=== PATIENT | female | born 1960 | race Caucasian/White ===

== ENCOUNTER → 2017-11-29 | Outpatient (CLI) | payer OTHER | END | disposition home or self-care (01) | LOC: CVU 09:41 | PROVIDERS: ATTEND Physician Assistant | DX: I35.0 Nonrheumatic aortic (valve) stenosis (principal); I35.8 Other nonrheumatic aortic valve disorders | CPT/HCPCS: 93306 ==

== ENCOUNTER → 2017-12-26 | Outpatient (CLI) | payer OTHER ==
[~2017-12-26] MED LIST: ALBU18HF INH; CARV12.52 PO; CIPR500T87 PO; FLUT1BLS INH; LISI1TAB7 PO; MONT10TA9 PO; OMNIPAQUE 350 MG/ML, 150 ML BOTTLE ONE
[2017-12-26 16:37] LABS: CREATININE 1.26 mg/dL (0.55-1.02)
== END ==
LOC: RAD 15:52
PROVIDERS: ATTEND Nurse Practitioner Family
DX: N20.0 Calculus of kidney (principal); N32.9 Bladder disorder, unspecified; R91.8 Other nonspecific abnormal finding of lung field
CPT/HCPCS: 36415; 74178; 82565; Q9967

== ENCOUNTER 2018-01-02 10:43 | Day surgery (SDC) | payer OTHER ==
[~2018-01-02] VITALS: Ht 157.5 cm; Wt 82.5 kg
[2018-01-02] MEDS ORDERED: LACTATED RINGERS 1,000 ML IV SCH (11:02)
[2018-01-02] MEDS ORDERED: LISI1TAB7 PO (11:08)
[2018-01-02] MEDS ORDERED: ALBU18HF INH (11:08)
[2018-01-02] MEDS ORDERED: MONT10TA9 PO (11:08)
[2018-01-02] MEDS ORDERED: CARV12.52 PO (11:08)
[2018-01-02] MEDS ORDERED: FLUT1BLS INH (11:08)
[2018-01-02] MEDS ORDERED: PROPOFOL 10 MG/ML, 20ML ONE ×2 (11:24→14:22)
[2018-01-02] MEDS ORDERED: FENTANYL PF 250 MCG/5ML ONE (11:24)
[2018-01-02] MEDS ORDERED: MIDAZOLAM 1 MG/ML, 2ML ONE (11:24)
[2018-01-02] MEDS ORDERED: PHENYLEPHRINE 10 MG/ML ONE ×2 (11:24→14:23)
[2018-01-02 11:38] VITALS: BP 89/60
[2018-01-02] MEDS ORDERED: CIPR500T87 PO (11:38)
[2018-01-02] MEDS ORDERED: GENTAMICIN 80 MG/2 ML ONE (13:36)
[2018-01-02] MEDS ORDERED: GLYCOPYRROLATE 0.2MG/1ML, 5ML ONE (13:58)
[2018-01-02] MEDS ORDERED: ROCURONIUM 10MG/ML,5ML ONE (14:22)
[2018-01-02] MEDS ORDERED: CEFAZOLIN 1,000 MG ONE ×2 (14:23)
[2018-01-02] MEDS ORDERED: EPINEPHRINE 1 MG/ML, 1ML ONE (14:23)
[2018-01-02] MEDS ORDERED: NEOSTIGMINE 1 MG/ML, 10ML ONE (14:39)
[2018-01-02] MEDS ORDERED: MEPERIDINE/PF 25MG/0.5ML IVPush PRN (15:00)
[2018-01-02] MEDS ORDERED: PROMETHAZINE 12.5 MG SUPP PR PRN (15:00)
[2018-01-02] MEDS ORDERED: ACETAMINOPHEN 325 MG TABLET PO PRN (15:00)
[2018-01-02] MEDS ORDERED: MORPHINE SULFATE 4 MG/ML, 1ML IVPush PRN (15:00)
[2018-01-02] MEDS ORDERED: OXYcodone 5 MG/5 ML ORAL.SOL UDC ONE (15:04)
[2018-01-02] MEDS ORDERED: FENTANYL PF 100 MCG/2ML ONE (15:04)
[2018-01-02] MEDS: FENTANYL PF 100 MCG/2ML IV PRN ×2 (15:06→15:19)
[2018-01-02] MEDS ORDERED: OXYcodone 5 MG/5 ML ORAL.SOL UDC PO PRN (15:30)
== END 2018-01-02 18:00 | disposition home or self-care (01) ==
LOC: OUT 10:43
PROVIDERS: ATTEND Urology
DX: C67.9 Malignant neoplasm of bladder, unspecified (principal)
CPT/HCPCS: 36415; 80047; 88305; J0171; J0690; J2250; J2704; J2710; J3010; J3490; J1580; J2370; J7120

== ENCOUNTER 2018-01-05 12:08 | Emergency (ER) | payer OTHER ==
[~2018-01-05] VITALS: Ht 157.5 cm; Wt 80.0 kg
[~2018-01-05 12:08] MED LIST changes: -OMNIPAQUE 350 MG/ML, 150 ML BOTTLE ONE
[2018-01-05 13:35] VITALS: BP 119/56
== END 2018-01-05 13:58 | disposition home or self-care (01) ==
LOC: ED 13:40
DX: R10.2 Pelvic and perineal pain (principal)
CPT/HCPCS: 72192; 99284

== ENCOUNTER 2018-02-06 05:34 | Day surgery (SDC) | payer OTHER ==
[~2018-02-06] VITALS: Ht 157.5 cm; Wt 81.0 kg
[2018-02-06] MEDS ORDERED: LACTATED RINGERS 1,000 ML IV SCH (06:01)
[2018-02-06 06:07] VITALS: BP 127/68
[2018-02-06 06:41] LABS: CULTURE INDICATED? YES; MICROSCOPIC INDICATED
[2018-02-06 06:49] LABS: BASOPHILS # (AUTO) 0.04 x10^3/uL (0-0.1); BASOPHILS % (AUTO) 1 % (0-1); EOSINOPHILS # (AUTO) 0.08 x10^3/uL (0-0.4); EOSINOPHILS % (AUTO) 2 % (1-7); LYMPHOCYTES # (AUTO) 1.42 x10^3/uL (1-3.4); LYMPHOCYTES % (AUTO) 29 % (22-44); MD NO; MEAN CORPUSCULAR HEMOGLOBIN 33.4 pg (27.0-34.8); MEAN CORPUSCULAR HGB CONC 33.5 g/dL (32.4-35.8); MEAN CORPUSCULAR VOLUME 99.8 fL (80-100); MEAN PLATELET VOLUME 8.6 fL (7.4-10.4); MONOCYTES # (AUTO) 0.55 x10^3/uL (0.2-0.8); MONOCYTES % (AUTO) 11 % (2-9); NEUTROPHILS # (AUTO) 2.81 x10^3/uL (1.8-6.8); NEUTROPHILS % (AUTO) 57 % (42-75); PLATELET COUNT 180 x10^3/uL (130-400); RED BLOOD COUNT 4.54 x10^6/uL (3.82-5.3); RED CELL DISTRIBUTION WIDTH 14.3 % (9.6-15.2)
[2018-02-06] MEDS ORDERED: FENTANYL PF 250 MCG/5ML ONE (07:00)
[2018-02-06] MEDS ORDERED: MIDAZOLAM 1 MG/ML, 2ML ONE (07:00)
[2018-02-06] MEDS ORDERED: PROPOFOL 10 MG/ML, 20ML ONE (07:01)
[2018-02-06] MEDS ORDERED: LIDOCAINE-MPF 2% ,5ML ONE (07:01)
[2018-02-06 07:02] LABS: ALANINE AMINOTRANSFERASE 65 U/L (12-78); ALBUMIN 4.2 g/dL (3.4-5.0); ANION GAP 8 mmol/L (5-15); CALCIUM 9.6 mg/dL (8.5-10.1); CHLORIDE 102 mmol/L (98-107); CREATININE 1.03 mg/dL (0.55-1.02)
[2018-02-06 07:04] LABS: ALKALINE PHOSPHATASE 66 U/L (45-117)
[2018-02-06] MEDS ORDERED: CEFAZOLIN 1,000 MG ONE ×2 (07:05)
[2018-02-06] MEDS ORDERED: DEXAMETHASONE 4 MG/ML, 1ML ONE ×2 (07:05)
[2018-02-06] MEDS ORDERED: PHENYLEPHRINE 10 MG/ML ONE (07:05)
[2018-02-06] MEDS ORDERED: ONDANSETRON ODT 8 MG ONE ×2 (07:08→07:09)
[2018-02-06] MEDS ORDERED: hydrALAzine 20 MG/ML, 1ML IV PRN (08:30)
[2018-02-06] MEDS ORDERED: FENTANYL PF 100 MCG/2ML IV PRN (08:30)
[2018-02-06] MEDS ORDERED: MEPERIDINE/PF 25MG/0.5ML IVPush PRN (08:30)
[2018-02-06] MEDS ORDERED: ACETAMINOPHEN 325 MG TABLET PO PRN (08:30)
[2018-02-06] MEDS ORDERED: ALBUTEROL SULFATE 2.5 MG/3 ML NPPB PRN (08:30)
[2018-02-06] MEDS ORDERED: HYDROmorphone 2 MG/ML, 1ML IV PRN (08:30)
[2018-02-06] MEDS ORDERED: OXYcodone 5 MG/5 ML ORAL.SOL UDC PO PRN (08:30)
[2018-02-06] MEDS ORDERED: LABETALOL 5MG/ML, 20ML IV PRN (08:30)
[2018-02-06] MEDS ORDERED: PROMETHAZINE 25 MG/ML, 1ML IV PRN (08:30)
[2018-02-06] MEDS ORDERED: HALOPERIDOL 5 MG/ML IV PRN (08:30)
== END 2018-02-06 10:10 ==
LOC: OUT 05:34
PROVIDERS: ATTEND Urology
DX: N30.00 Acute cystitis without hematuria (principal); N30.20 Other chronic cystitis without hematuria; J45.909 Unspecified asthma, uncomplicated; I10 Essential (primary) hypertension; Z72.89 Other problems related to lifestyle
CPT/HCPCS: 36415; 52204; 80053; 81001; 85025; 87086; 88305; 88307; J0690; J1100; J2250; J2370; J2704; J3010; J3490; J7120; Q0162

== ENCOUNTER → 2018-05-29 | Outpatient (CLI) | payer OTHER | END | disposition home or self-care (01) | LOC: CFH 12:40 | PROVIDERS: ATTEND Internal Medicine Cardiovascular Disease | DX: I11.9 Hypertensive heart disease without heart failure (principal); I35.0 Nonrheumatic aortic (valve) stenosis; E78.5 Hyperlipidemia, unspecified; Z85.51 Personal history of malignant neoplasm of bladder | CPT/HCPCS: 93306 ==

== ENCOUNTER 2018-06-11 09:38 | Day surgery (SDC) | payer OTHER ==
[~2018-06-11] VITALS: Ht 160 cm; Wt 81.8 kg
[2018-06-11] MEDS ORDERED: SODIUM CHLORIDE 0.9% 1,000 ML IV ONE (09:56)
[2018-06-11] MEDS ORDERED: HYDR12.58 PO (10:07)
[2018-06-11] MEDS ORDERED: PRAV20TA2 PO (10:07)
[2018-06-11] MEDS ORDERED: LISI-170 PO (10:07)
[2018-06-11] MEDS ORDERED: ALBU8.5H8 INH (10:07)
[2018-06-11 10:08] VITALS: BP 114/78
[2018-06-11 10:36] LABS: ALANINE AMINOTRANSFERASE 76 U/L (12-78); ALBUMIN 3.8 g/dL (3.4-5.0); ANION GAP 8 mmol/L (5-15); CALCIUM 9.6 mg/dL (8.5-10.1); CHLORIDE 107 mmol/L (98-107); CREATININE 0.85 mg/dL (0.55-1.02)
[2018-06-11 10:38] LABS: ALKALINE PHOSPHATASE 63 U/L (45-117); BILIRUBIN,TOTAL 0.7 mg/dL (0.2-1.0); TOTAL PROTEIN 7.5 g/dL (6.4-8.2)
[2018-06-11 10:49] LABS: BASOPHILS # (AUTO) 0.02 x10^3/uL (0-0.1); BASOPHILS % (AUTO) 1 % (0-1); EOSINOPHILS # (AUTO) 0.06 x10^3/uL (0-0.4); EOSINOPHILS % (AUTO) 2 % (1-7); LYMPHOCYTES # (AUTO) 1.12 x10^3/uL (1-3.4); LYMPHOCYTES % (AUTO) 29 % (22-44); MD NO; MEAN CORPUSCULAR HEMOGLOBIN 34.4 pg (27.0-34.8); MEAN CORPUSCULAR HGB CONC 34.3 g/dL (32.4-35.8); MEAN CORPUSCULAR VOLUME 100.1 fL (80-100); MEAN PLATELET VOLUME 8.7 fL (7.4-10.4); MONOCYTES # (AUTO) 0.36 x10^3/uL (0.2-0.8); MONOCYTES % (AUTO) 9 % (2-9); NEUTROPHILS # (AUTO) 2.32 x10^3/uL (1.8-6.8); NEUTROPHILS % (AUTO) 60 % (42-75); PLATELET COUNT 152 x10^3/uL (130-400); RED BLOOD COUNT 4.42 x10^6/uL (3.82-5.3)
[2018-06-11] MEDS ORDERED: BIVALIRUDIN 250 MG ONE (11:32)
[2018-06-11] MEDS ORDERED: MIDAZOLAM 1 MG/ML, 5ML ONE (11:32)
[2018-06-11] MEDS ORDERED: HEPARIN 1,000 UNITS/ML, 10ML ONE (11:32)
[2018-06-11] MEDS ORDERED: FENTANYL PF 100 MCG/2ML ONE (11:32)
[2018-06-11] MEDS ORDERED: NITROGLYCERIN 5 MG/ML, 10ML ONE (11:32)
[2018-06-11] MEDS ORDERED: VERAPAMIL 2.5 MG/ML, 2ML ONE (11:32)
[2018-06-11] MEDS ORDERED: LIDOCAINE-MPF 1%, 5ML ONE (11:32)
[2018-06-11] MEDS ORDERED: TICAGRELOR 90 MG TABLET ONE (11:32)
[2018-06-11] MEDS ORDERED: SODIUM CHLORIDE 0.9% 1,000 ML IV SCH (12:49)
== END 2018-06-11 14:51 | disposition home or self-care (01) ==
LOC: CACL 09:38
PROVIDERS: ATTEND Internal Medicine Cardiovascular Disease
DX: R07.9 Chest pain, unspecified (principal); I10 Essential (primary) hypertension; E78.5 Hyperlipidemia, unspecified; E66.9 Obesity, unspecified; I35.0 Nonrheumatic aortic (valve) stenosis; Z98.890 Other specified postprocedural states
CPT/HCPCS: 36415; 80053; 85025; 93454; 93567; 99156; C1769; C1894; J1644; J2250; J3010; Q9967; J0583

== ENCOUNTER → 2018-06-17 | Outpatient (CLI) | payer OTHER ==
[~2018-06-17] MED LIST changes: +ALBU8.5H8 INH; +HYDR12.58 PO; +LISI-170 PO; +PRAV20TA2 PO
== END | disposition home or self-care (01) ==
LOC: LAB 11:13
PROVIDERS: ATTEND Nurse Practitioner
DX: R91.8 Other nonspecific abnormal finding of lung field (principal); G47.33 Obstructive sleep apnea (adult) (pediatric)
CPT/HCPCS: 71250

== ENCOUNTER 2018-07-02 04:23 | Inpatient (IN) | payer OTHER ==
[2018-07-01 12:48] LABS: MICROSCOPIC NOT IND
[2018-07-01 13:50] LABS: ALBUMIN 3.8 g/dL (3.4-5.0); ANION GAP 9 mmol/L (5-15); CALCIUM 9.4 mg/dL (8.5-10.1); CHLORIDE 105 mmol/L (98-107)
[2018-07-01 13:54] LABS: ALANINE AMINOTRANSFERASE 69 U/L (12-78); ALKALINE PHOSPHATASE 66 U/L (45-117); BILIRUBIN,TOTAL 1.1 mg/dL (0.2-1.0); TOTAL PROTEIN 7.8 g/dL (6.4-8.2)
[2018-07-01 14:03] LABS: BASOPHILS # (AUTO) 0.03 x10^3/uL (0-0.1); BASOPHILS % (AUTO) 1 % (0-1); EOSINOPHILS # (AUTO) 0.09 x10^3/uL (0-0.4); EOSINOPHILS % (AUTO) 2 % (1-7); LYMPHOCYTES # (AUTO) 1.65 x10^3/uL (1-3.4); LYMPHOCYTES % (AUTO) 29 % (22-44); MD NO; MEAN CORPUSCULAR HEMOGLOBIN 35.5 pg (27.0-34.8); MEAN CORPUSCULAR HGB CONC 34.7 g/dL (32.4-35.8); MEAN CORPUSCULAR VOLUME 102.3 fL (80-100); MEAN PLATELET VOLUME 8.4 fL (7.4-10.4); MONOCYTES # (AUTO) 0.56 x10^3/uL (0.2-0.8); MONOCYTES % (AUTO) 10 % (2-9); NEUTROPHILS # (AUTO) 3.43 x10^3/uL (1.8-6.8); NEUTROPHILS % (AUTO) 60 % (42-75); PLATELET COUNT 156 x10^3/uL (130-400); RED BLOOD COUNT 4.52 x10^6/uL (3.82-5.3); RED CELL DISTRIBUTION WIDTH 13.9 % (9.6-15.2)
[2018-07-01 14:13] LABS: INTERNATIONAL NORMALIZED RATIO 1.18 (0.93-1.1); PROTHROMBIN TIME 12.2 Seconds (9.6-11.5)
[2018-07-01 14:30] LABS: HEMOGLOBIN A1C 5.4 % (4.2-6.3)
[~2018-07-02] VITALS: Ht 157.5 cm; Wt 86.2 kg
[2018-07-02 04:35] VITALS: BP 112/78
[2018-07-02 04:36] VITALS: BP 121/82
[2018-07-02] MEDS ORDERED: CHLORHEXIDINE 15 ML UDC MM SCH (05:00)
[2018-07-02] MEDS ORDERED: INSULIN LISPRO 100 UNITS/ML, PEN SQ-INSULIN SCH (05:00)
[2018-07-02] MEDS ORDERED: ALBUMIN HUMAN 5% 500 ML IV PRN (05:00)
[2018-07-02] MEDS ORDERED: THROMBIN 5,000 UNIT VIAL TP ONE ×2 (06:08→08:34)
[2018-07-02] MEDS ORDERED: MIDAZOLAM 10MG/2 ML ONE (06:43)
[2018-07-02] MEDS ORDERED: FENTANYL PF 250 MCG/5ML ONE ×4 (06:43→06:44)
[2018-07-02] MEDS ORDERED: PROPOFOL 10 MG/ML, 20ML ONE (06:45)
[2018-07-02] MEDS ORDERED: AMINOCAPROIC ACID 250 MG/ML, 20ML ONE (06:45)
[2018-07-02] MEDS ORDERED: CALCIUM CHLORIDE 10%, 10ML SYR ONE (06:46)
[2018-07-02] MEDS ORDERED: EPINEPHRINE 1 MG/ML, 1ML ONE (06:48)
[2018-07-02] MEDS ORDERED: ROCURONIUM 10 MG/ML,10ML ONE (07:27)
[2018-07-02] MEDS ORDERED: MANNITOL PMX 20% 500 ML IVPB PRN (07:30)
[2018-07-02] MEDS ORDERED: VANCOMYCIN 1,300 MG in SODIUM CHLORIDE 0.9% 250 ML IV PRN (07:30)
[2018-07-02] MEDS ORDERED: PHENYLEPHRINE 10 MG in SODIUM CHLORIDE 0.9% 249 ML IV PRN ×2 (07:30→10:58)
[2018-07-02] MEDS ORDERED: EPINEPHRINE 2 MG in SODIUM CHLORIDE 0.9% 248 ML IV SCH (07:30)
[2018-07-02] MEDS ORDERED: REGULAR INSULIN 62.5 UNITS in SODIUM CHLORIDE 0.9% 249.375 ML IV PRN ×2 (07:30→10:58)
[2018-07-02] MEDS ORDERED: CEFUROXIME 1.5 GM in SODIUM CHLORIDE 0.9% 50 ML IVPB PRN (07:30)
[2018-07-02] MEDS ORDERED: DEXMEDETOMIDINE 200 MCG in SODIUM CHLORIDE 0.9% 48 ML IV SCH (07:30)
[2018-07-02] MEDS ORDERED: POTASSIUM CHLORIDE 80 MEQ, SODIUM BICARBONATE 8.4% 10 MEQ, MAGNESIUM SULFATE 0.5 GM, LI... IV PRN (07:30)
[2018-07-02] MEDS ORDERED: MUPIROCIN OINT 2%, 22GM TP SCH (09:00)
[2018-07-02] MEDS ORDERED: SODIUM CHLORIDE FLUSH 10ML SYR IVF SCH (09:00)
[2018-07-02] MEDS ORDERED: NITROGLYCERIN/D5W PMX 250 ML ONE (10:19)
[2018-07-02] MEDS ORDERED: SODIUM CHLORIDE 0.9% 1,000 ML IV PRN (10:58)
[2018-07-02] MEDS ORDERED: DEXMEDETOMIDINE 200 MCG in SODIUM CHLORIDE 0.9% 48 ML IV PRN (10:58)
[2018-07-02] MEDS ORDERED: NITROGLYCERIN/D5W PMX 250 ML IV PRN (10:58)
[2018-07-02] MEDS ORDERED: VASOPRESSIN 50 UNIT in SODIUM CHLORIDE 0.9% 247.5 ML IV PRN (10:58)
[2018-07-02] MEDS ORDERED: DOBUTAMINE 250 MG in SODIUM CHLORIDE 0.9% 230 ML IV PRN (10:58)
[2018-07-02] MEDS ORDERED: GLUCAGON 1 MG IM PRN (11:00)
[2018-07-02] MEDS ORDERED: MIDAZOLAM 1 MG/ML, 5ML IVPush PRN (11:00)
[2018-07-02] MEDS ORDERED: SODIUM BICARB 8.4%, 50ML SYRINGE IV PRN (11:00)
[2018-07-02] MEDS ORDERED: INSULIN REGULAR 100 UNITS/ML, 3ML VIAL IVPush PRN (11:00)
[2018-07-02] MEDS ORDERED: BISACODYL 10 MG SUPP PR PRN (11:00)
[2018-07-02] MEDS ORDERED: DEXTROSE 50%, 50ML SYRINGE IVPush PRN (11:00)
[2018-07-02] MEDS ORDERED: BISACODYL 5 MG EC TABLET PO PRN (11:00)
[2018-07-02] MEDS ORDERED: PROCHLORPERAZINE 5 MG/ML, 2ML IVPush PRN (11:00)
[2018-07-02] MEDS ORDERED: morphine SULFATE 10 MG/ML, 1ML IVPush PRN (11:00)
[2018-07-02] MEDS ORDERED: DEXTROSE 4 GM TAB.CHEW PO PRN (11:00)
[2018-07-02] MEDS ORDERED: ACETAMINOPHEN 650 MG SUPP PR PRN (11:00)
[2018-07-02] MEDS ORDERED: HYDROcodone/APAP 5/325 TABLET PO PRN (11:00)
[2018-07-02] MEDS ORDERED: EPINEPHRINE 2 MG in SODIUM CHLORIDE 0.9% 248 ML IV PRN (11:00)
[2018-07-02] MEDS ORDERED: LIDOCAINE 2% 100MG/5ML SYRINGE ONE (11:20)
[2018-07-02] MEDS ORDERED: SODIUM BICARB 8.4%, 50ML SYRINGE ONE (11:20)
[2018-07-02] MEDS ORDERED: HEPARIN 1,000 UNITS/ML, 30ML ONE (11:21)
[2018-07-02] MEDS ORDERED: ALBUMIN HUMAN 25% 50 ML ONE (11:21)
[2018-07-02] MEDS: DOCUSATE 100 MG CAPSULE PO SCH ×2 (11:47→21:13)
[2018-07-02] MEDS: INSULIN LISPRO 100 UNITS/ML, PEN SQ-INSULIN SCH ×3 (11:48→20:00)
[2018-07-02] MEDS: MAGNESIUM SULFATE 1 GM in SODIUM CHLORIDE 0.9% 50 ML IVPB SCH (11:48)
[2018-07-02 11:50] LABS: GLUCOSE BY BLOOD GAS ANALYZER 126 mg/dL (70-110); HEMOGLOBIN BY BLOOD GAS ANALYZ 12.3 g/dL (14.0-18.0); POTASSIUM BY BLOOD GAS ANALYZR 4.2 mmol/L (3.6-5.5)
[2018-07-02] MEDS: KSCALE TO 4.5 IV SCH ×2 (12:04→17:35)
[2018-07-02] MEDS: LACTATED RINGERS 1,000 ML IV PRN ×5 (13:57→17:58)
[2018-07-02] MEDS: OXYcodone IR 5MG TABLET PO PRN ×2 (14:20→19:59)
[2018-07-02] MEDS ORDERED: ALBUTEROL SULFATE 2.5 MG/3 ML NPPB PRN (14:30)
[2018-07-02] MEDS: ONDANSETRON 2MG/ML, 2ML IVPush PRN (17:32)
[2018-07-02] MEDS: CEFUROXIME 1.5 GM in SODIUM CHLORIDE 0.9% 50 ML IVPB SCH (19:58)
[2018-07-02] MEDS: CHLORHEXIDINE 15 ML UDC PO SCH (21:13)
[2018-07-02] MEDS: MUPIROCIN OINT 2%, 22GM NAS SCH (21:14)
[2018-07-03] MEDS: KSCALE TO 4.5 IV SCH ×2 (00:21→06:30)
[2018-07-03] MEDS: OXYcodone IR 5MG TABLET PO PRN ×7 (01:26→23:46)
[2018-07-03] MEDS: INSULIN LISPRO 100 UNITS/ML, PEN SQ-INSULIN SCH ×7 (04:00→23:48)
[2018-07-03 05:07] LABS: ANION GAP 6 mmol/L (5-15); CALCIUM 7.5 mg/dL (8.5-10.1); CHLORIDE 110 mmol/L (98-107); CREATININE 0.64 mg/dL (0.55-1.02); INTERNATIONAL NORMALIZED RATIO 1.3 (0.93-1.1); MEAN CORPUSCULAR HEMOGLOBIN 35.4 pg (27.0-34.8); MEAN CORPUSCULAR HGB CONC 34.3 g/dL (32.4-35.8); MEAN CORPUSCULAR VOLUME 103.3 fL (80-100); PROTHROMBIN TIME 13.4 Seconds (9.6-11.5); RED CELL DISTRIBUTION WIDTH 14.3 % (9.6-15.2)
[2018-07-03 05:41] LABS: BASOPHILS # (AUTO) 0.04 x10^3/uL (0-0.1); BASOPHILS % (AUTO) 1 % (0-1); EOSINOPHILS # (AUTO) 0.09 x10^3/uL (0-0.4); EOSINOPHILS % (AUTO) 1 % (1-7); LYMPHOCYTES % (AUTO) 16 % (22-44); MD SCAN; MEAN PLATELET VOLUME 8.6 fL (7.4-10.4); MONOCYTES % (AUTO) 8 % (2-9); NEUTROPHILS # (AUTO) 6.51 x10^3/uL (1.8-6.8); NEUTROPHILS % (AUTO) 75 % (42-75); PLATELET COUNT 83 x10^3/uL (130-400)
[2018-07-03] MEDS ORDERED: MILRINONE 1 MG/ML, 10ML IV ONE (07:27)
[2018-07-03] MEDS: CEFUROXIME 1.5 GM in SODIUM CHLORIDE 0.9% 50 ML IVPB SCH (07:43)
[2018-07-03] MEDS ORDERED: ALBUTEROL SULFATE 2.5 MG/3 ML NPPB SCH (08:00)
[2018-07-03] MEDS: FLUTICASONE/VILANTEROL 200-25MCG/INH INH SCH (09:00)
[2018-07-03] MEDS: WARFARIN BIOPROSTHETIC VALVE PROTOCOL 2-3 XX SCH (09:00)
[2018-07-03] MEDS: CHLORHEXIDINE 15 ML UDC PO SCH ×2 (09:17→20:06)
[2018-07-03] MEDS: SODIUM CHLORIDE FLUSH 10ML SYR IVF SCH ×3 (09:19→21:00)
[2018-07-03] MEDS: ASPIRIN 81 MG TABLET EC PO SCH (09:19)
[2018-07-03] MEDS: MONTELUKAST 10 MG TABLET PO SCH (09:19)
[2018-07-03] MEDS: DOCUSATE 100 MG CAPSULE PO SCH ×2 (09:19→20:06)
[2018-07-03] MEDS: MUPIROCIN OINT 2%, 22GM NAS SCH ×2 (09:19→20:05)
[2018-07-03] MEDS: POTASSIUM CHLORIDE 10 MEQ TABLET.ER PO SCH ×2 (09:19→17:02)
[2018-07-03] MEDS: FUROSEMIDE 20 MG/2 ML IV SCH ×2 (09:20→17:02)
[2018-07-03] MEDS: ALBUTEROL SULFATE 2.5 MG/3 ML NPPB SCH ×3 (11:00→19:00)
[2018-07-03] MEDS: MAGNESIUM SULFATE 1 GM in SODIUM CHLORIDE 0.9% 50 ML IVPB SCH (11:05)
[2018-07-03] MEDS: WARFARIN MODERAT DOSE PROTOCOL XX SCH (12:00)
[2018-07-03 13:13] VITALS: BP 124/74
[2018-07-03] MEDS ORDERED: WARFARIN 7.5 MG TABLET PO-COUM ONE (18:00)
[2018-07-03] MEDS: PRAVASTATIN 20 MG TABLET PO SCH (20:06)
[2018-07-03 20:19] VITALS: BP 117/77
[2018-07-04] MEDS: OXYcodone IR 5MG TABLET PO PRN ×5 (02:49→20:21)
[2018-07-04 02:51] VITALS: BP 118/76
[2018-07-04] MEDS: INSULIN LISPRO 100 UNITS/ML, PEN SQ-INSULIN SCH ×5 (04:00→20:18)
[2018-07-04 06:23] LABS: MEAN CORPUSCULAR HEMOGLOBIN 35.6 pg (27.0-34.8); MEAN CORPUSCULAR HGB CONC 34.6 g/dL (32.4-35.8); MEAN CORPUSCULAR VOLUME 102.9 fL (80-100); MEAN PLATELET VOLUME 8.8 fL (7.4-10.4); PLATELET COUNT 82 x10^3/uL (130-400); RED BLOOD COUNT 3.17 x10^6/uL (3.82-5.3)
[2018-07-04 06:28] LABS: ANION GAP 9 mmol/L (5-15); CALCIUM 8.2 mg/dL (8.5-10.1); CHLORIDE 101 mmol/L (98-107); CREATININE 0.69 mg/dL (0.55-1.02); INTERNATIONAL NORMALIZED RATIO 1.29 (0.93-1.1); PROTHROMBIN TIME 13.3 Seconds (9.6-11.5)
[2018-07-04 07:40] LABS: BASOPHILS # (AUTO) 0.07 x10^3/uL (0-0.1); BASOPHILS % (AUTO) 1 % (0-1); EOSINOPHILS # (AUTO) 0.17 x10^3/uL (0-0.4); EOSINOPHILS % (AUTO) 2 % (1-7); LYMPHOCYTES # (AUTO) 1.53 x10^3/uL (1-3.4); LYMPHOCYTES % (AUTO) 13 % (22-44); MD SCAN; MONOCYTES # (AUTO) 1.16 x10^3/uL (0.2-0.8); MONOCYTES % (AUTO) 10 % (2-9); NEUTROPHILS # (AUTO) 8.46 x10^3/uL (1.8-6.8); NEUTROPHILS % (AUTO) 74 % (42-75)
[2018-07-04 07:44] VITALS: BP 120/74
[2018-07-04] MEDS: FUROSEMIDE 20 MG/2 ML IV SCH ×2 (08:33→17:26)
[2018-07-04] MEDS: MUPIROCIN OINT 2%, 22GM NAS SCH ×2 (08:33→20:19)
[2018-07-04] MEDS: ASPIRIN 81 MG TABLET EC PO SCH (08:33)
[2018-07-04] MEDS: POTASSIUM CHLORIDE 10 MEQ TABLET.ER PO SCH ×2 (08:33→17:26)
[2018-07-04] MEDS: DOCUSATE 100 MG CAPSULE PO SCH ×2 (08:33→20:20)
[2018-07-04] MEDS: CHLORHEXIDINE 15 ML UDC PO SCH (08:33)
[2018-07-04] MEDS: ENOXAPARIN 40 MG/0.4 ML SQ SCH (08:33)
[2018-07-04] MEDS: MONTELUKAST 10 MG TABLET PO SCH (08:33)
[2018-07-04] MEDS: WARFARIN BIOPROSTHETIC VALVE PROTOCOL 2-3 XX SCH (09:00)
[2018-07-04] MEDS: FLUTICASONE/VILANTEROL 200-25MCG/INH INH SCH (09:00)
[2018-07-04] MEDS: SODIUM CHLORIDE FLUSH 10ML SYR IVF SCH ×4 (09:00→20:24)
[2018-07-04] MEDS: MAGNESIUM SULFATE 1 GM in SODIUM CHLORIDE 0.9% 50 ML IVPB SCH (11:20)
[2018-07-04] MEDS: WARFARIN MODERAT DOSE PROTOCOL XX SCH (12:00)
[2018-07-04 12:26] VITALS: BP 127/80
[2018-07-04] MEDS ORDERED: WARFARIN 7.5 MG TABLET PO-COUM ONE (18:00)
[2018-07-04 19:14] VITALS: BP 125/75
[2018-07-04] MEDS: PRAVASTATIN 20 MG TABLET PO SCH (20:20)
[2018-07-05] MEDS: OXYcodone IR 5MG TABLET PO PRN ×7 (00:43→22:15)
[2018-07-05] MEDS: INSULIN LISPRO 100 UNITS/ML, PEN SQ-INSULIN SCH ×2 (00:43→04:00)
[2018-07-05 00:44] VITALS: BP 103/68
[2018-07-05 05:47] LABS: MEAN CORPUSCULAR HGB CONC 35.2 g/dL (32.4-35.8); MEAN CORPUSCULAR VOLUME 102.4 fL (80-100); RED BLOOD COUNT 2.87 x10^6/uL (3.82-5.3); RED CELL DISTRIBUTION WIDTH 13.8 % (9.6-15.2)
[2018-07-05 05:53] LABS: ANION GAP 8 mmol/L (5-15); CALCIUM 8.7 mg/dL (8.5-10.1); CHLORIDE 98 mmol/L (98-107); CREATININE 0.57 mg/dL (0.55-1.02)
[2018-07-05 06:07] LABS: BASOPHILS # (AUTO) 0.01 x10^3/uL (0-0.1); BASOPHILS % (AUTO) 0 % (0-1); EOSINOPHILS # (AUTO) 0.13 x10^3/uL (0-0.4); EOSINOPHILS % (AUTO) 2 % (1-7); LYMPHOCYTES # (AUTO) 1.08 x10^3/uL (1-3.4); LYMPHOCYTES % (AUTO) 15 % (22-44); MD SCAN; MONOCYTES # (AUTO) 0.75 x10^3/uL (0.2-0.8); MONOCYTES % (AUTO) 10 % (2-9); NEUTROPHILS # (AUTO) 5.47 x10^3/uL (1.8-6.8); NEUTROPHILS % (AUTO) 74 % (42-75); PLATELET COUNT 82 x10^3/uL (130-400)
[2018-07-05 07:31] VITALS: BP 107/63
[2018-07-05] MEDS: MONTELUKAST 10 MG TABLET PO SCH (08:10)
[2018-07-05] MEDS: ASPIRIN 81 MG TABLET EC PO SCH (08:11)
[2018-07-05] MEDS: FUROSEMIDE 20 MG/2 ML IV SCH ×2 (08:11→17:59)
[2018-07-05] MEDS: DOCUSATE 100 MG CAPSULE PO SCH ×2 (08:11→22:00)
[2018-07-05] MEDS: POTASSIUM CHLORIDE 10 MEQ TABLET.ER PO SCH ×2 (08:12→18:00)
[2018-07-05] MEDS: SODIUM CHLORIDE FLUSH 10ML SYR IVF SCH ×4 (08:13→22:01)
[2018-07-05] MEDS: MUPIROCIN OINT 2%, 22GM NAS SCH ×2 (08:13→22:00)
[2018-07-05] MEDS ORDERED: POTASSIUM CHLORIDE 20 MEQ PACKET PO ONE (08:30)
[2018-07-05 08:43] LABS: INTERNATIONAL NORMALIZED RATIO 1.72 (0.93-1.1); PROTHROMBIN TIME 17.7 Seconds (9.6-11.5)
[2018-07-05] MEDS ORDERED: CLOPIDOGREL 75 MG TABLET PO SCH (09:00)
[2018-07-05] MEDS: WARFARIN BIOPROSTHETIC VALVE PROTOCOL 2-3 XX SCH (09:09)
[2018-07-05] MEDS: FLUTICASONE/VILANTEROL 200-25MCG/INH INH SCH (09:47)
[2018-07-05] MEDS: ENOXAPARIN 40 MG/0.4 ML SQ SCH (09:48)
[2018-07-05] MEDS: WARFARIN MODERAT DOSE PROTOCOL XX SCH (12:03)
[2018-07-05 13:38] VITALS: BP 105/67
[2018-07-05] MEDS ORDERED: WARFARIN 5 MG TABLET PO-COUM ONE (18:00)
[2018-07-05 18:57] VITALS: BP 135/77
[2018-07-05] MEDS: PRAVASTATIN 20 MG TABLET PO SCH (22:00)
[2018-07-06] MEDS: OXYcodone IR 5MG TABLET PO PRN ×4 (00:36→20:10)
[2018-07-06 04:31] VITALS: BP 110/75
[2018-07-06 05:16] LABS: BASOPHILS # (AUTO) 0.03 x10^3/uL (0-0.1); BASOPHILS % (AUTO) 1 % (0-1); EOSINOPHILS # (AUTO) 0.11 x10^3/uL (0-0.4); EOSINOPHILS % (AUTO) 2 % (1-7); LYMPHOCYTES # (AUTO) 0.99 x10^3/uL (1-3.4); LYMPHOCYTES % (AUTO) 17 % (22-44); MD NO; MEAN CORPUSCULAR HEMOGLOBIN 35.8 pg (27.0-34.8); MEAN CORPUSCULAR HGB CONC 34.9 g/dL (32.4-35.8); MEAN CORPUSCULAR VOLUME 102.7 fL (80-100); MEAN PLATELET VOLUME 8.6 fL (7.4-10.4); MONOCYTES % (AUTO) 12 % (2-9); NEUTROPHILS # (AUTO) 3.85 x10^3/uL (1.8-6.8); NEUTROPHILS % (AUTO) 68 % (42-75); PLATELET COUNT 116 x10^3/uL (130-400); RED BLOOD COUNT 2.87 x10^6/uL (3.82-5.3); RED CELL DISTRIBUTION WIDTH 13.6 % (9.6-15.2)
[2018-07-06 05:17] LABS: ANION GAP 7 mmol/L (5-15); CALCIUM 8.3 mg/dL (8.5-10.1); CHLORIDE 99 mmol/L (98-107); CREATININE 0.63 mg/dL (0.55-1.02)
[2018-07-06 06:50] LABS: INTERNATIONAL NORMALIZED RATIO 2.78 (0.93-1.1)
[2018-07-06 06:53] LABS: PROTHROMBIN TIME 28.3 Seconds (9.6-11.5)
[2018-07-06 08:02] VITALS: BP 120/75
[2018-07-06] MEDS: WARFARIN BIOPROSTHETIC VALVE PROTOCOL 2-3 XX SCH (09:00)
[2018-07-06] MEDS: SODIUM CHLORIDE FLUSH 10ML SYR IVF SCH ×4 (09:00→20:10)
[2018-07-06] MEDS: ONDANSETRON 2MG/ML, 2ML IVPush PRN (09:39)
[2018-07-06] MEDS: WARFARIN MODERAT DOSE PROTOCOL XX SCH (10:03)
[2018-07-06] MEDS: FLUTICASONE/VILANTEROL 200-25MCG/INH INH SCH (10:13)
[2018-07-06] MEDS: POTASSIUM CHLORIDE 10 MEQ TABLET.ER PO SCH ×2 (10:14→18:43)
[2018-07-06] MEDS: MONTELUKAST 10 MG TABLET PO SCH (10:14)
[2018-07-06] MEDS: MAGNESIUM HYDROXIDE 8%, 30ML UDC PO PRN (10:14)
[2018-07-06] MEDS: DOCUSATE 100 MG CAPSULE PO SCH ×2 (10:14→20:09)
[2018-07-06] MEDS: MUPIROCIN OINT 2%, 22GM NAS SCH ×2 (10:14→20:10)
[2018-07-06] MEDS: ASPIRIN 81 MG TABLET EC PO SCH (10:14)
[2018-07-06] MEDS: FUROSEMIDE 20 MG/2 ML IV SCH ×2 (10:15→18:43)
[2018-07-06] MEDS: ACETAMINOPHEN 325 MG TABLET PO PRN (12:07)
[2018-07-06 14:31] VITALS: BP 124/78
[2018-07-06] MEDS: ENOXAPARIN 40 MG/0.4 ML SQ SCH (16:12)
[2018-07-06 19:12] VITALS: BP 112/62
[2018-07-06] MEDS: PRAVASTATIN 20 MG TABLET PO SCH (20:09)
[2018-07-06] MEDS ORDERED: OXYC5TAB3 PO (20:34)
[2018-07-06] MEDS ORDERED: POTA20TA89 PO (20:34)
[2018-07-06] MEDS ORDERED: ASPI-621 PO (20:34)
[2018-07-06] MEDS ORDERED: WARF2TAB99 PO (20:34)
[2018-07-06] MEDS ORDERED: FURO40TA6 PO (20:34)
[2018-07-07 01:21] VITALS: BP 106/71
[2018-07-07 05:51] LABS: INTERNATIONAL NORMALIZED RATIO 2.82 (0.93-1.1); PROTHROMBIN TIME 28.7 Seconds (9.6-11.5)
[2018-07-07 05:53] LABS: ANION GAP 5 mmol/L (5-15); CALCIUM 8.7 mg/dL (8.5-10.1); CHLORIDE 97 mmol/L (98-107); CREATININE 0.71 mg/dL (0.55-1.02)
[2018-07-07 06:00] LABS: BASOPHILS # (AUTO) 0.02 x10^3/uL (0-0.1); BASOPHILS % (AUTO) 0 % (0-1); EOSINOPHILS # (AUTO) 0.11 x10^3/uL (0-0.4); EOSINOPHILS % (AUTO) 2 % (1-7); LYMPHOCYTES # (AUTO) 0.88 x10^3/uL (1-3.4); LYMPHOCYTES % (AUTO) 19 % (22-44); MD NO; MEAN CORPUSCULAR HEMOGLOBIN 34.9 pg (27.0-34.8); MEAN CORPUSCULAR HGB CONC 34.3 g/dL (32.4-35.8); MEAN CORPUSCULAR VOLUME 101.8 fL (80-100); MEAN PLATELET VOLUME 8.3 fL (7.4-10.4); MONOCYTES # (AUTO) 0.61 x10^3/uL (0.2-0.8); MONOCYTES % (AUTO) 13 % (2-9); NEUTROPHILS # (AUTO) 3.03 x10^3/uL (1.8-6.8); NEUTROPHILS % (AUTO) 65 % (42-75); PLATELET COUNT 154 x10^3/uL (130-400); RED BLOOD COUNT 2.98 x10^6/uL (3.82-5.3); RED CELL DISTRIBUTION WIDTH 13.5 % (9.6-15.2)
[2018-07-07] MEDS: MAGNESIUM HYDROXIDE 8%, 30ML UDC PO PRN (08:18)
[2018-07-07] MEDS: FUROSEMIDE 20 MG/2 ML IV SCH ×2 (08:18→08:42)
[2018-07-07] MEDS: ACETAMINOPHEN 325 MG TABLET PO PRN (08:19)
[2018-07-07] MEDS: ASPIRIN 81 MG TABLET EC PO SCH (08:20)
[2018-07-07] MEDS: DOCUSATE 100 MG CAPSULE PO SCH (08:20)
[2018-07-07] MEDS: POTASSIUM CHLORIDE 10 MEQ TABLET.ER PO SCH (08:20)
[2018-07-07] MEDS: MONTELUKAST 10 MG TABLET PO SCH (08:20)
[2018-07-07] MEDS: MUPIROCIN OINT 2%, 22GM NAS SCH (08:20)
[2018-07-07] MEDS: SODIUM CHLORIDE FLUSH 10ML SYR IVF SCH ×2 (08:23→08:40)
[2018-07-07] MEDS: WARFARIN BIOPROSTHETIC VALVE PROTOCOL 2-3 XX SCH (08:41)
[2018-07-07] MEDS: ENOXAPARIN 40 MG/0.4 ML SQ SCH (08:41)
[2018-07-07] MEDS: WARFARIN MODERAT DOSE PROTOCOL XX SCH (08:41)
[2018-07-07] MEDS: FLUTICASONE/VILANTEROL 200-25MCG/INH INH SCH (08:41)
[2018-07-07] MEDS ORDERED: FUROSEMIDE 20 MG TABLET PO ONE (09:00)
[2018-07-07 09:58] VITALS: BP 103/61
[2018-07-07] MEDS: OXYcodone IR 5MG TABLET PO PRN (12:19)
== END 2018-07-07 13:55 | disposition home health service (06) | DRG 220 ==
LOC: 5SO 04:23 → CSU 07:23 → 5SO 07-03 13:15
PROVIDERS: ADMIT Thoracic Surgery (Cardiothoracic Vascular Surgery); ATTEND Thoracic Surgery (Cardiothoracic Vascular Surgery)
PROC: 5A1221Z Performance of Cardiac Output, Continuous (ICD-10-PCS; 2018-07-02)
PROC: B24BZZ4 Ultrasonography of Heart with Aorta, Transesophageal (ICD-10-PCS; 2018-07-02)
PROC: X2RF032 Replacement of Aortic Valve using Zooplastic Tissue, Rapid Deployment Technique, Open Approach, New Technology Group 2 (ICD-10-PCS; principal; 2018-07-02 07:30)
DX: I35.0 Nonrheumatic aortic (valve) stenosis (principal); J98.11 Atelectasis; E66.9 Obesity, unspecified; E78.5 Hyperlipidemia, unspecified; I11.9 Hypertensive heart disease without heart failure; J44.9 Chronic obstructive pulmonary disease, unspecified; Z85.51 Personal history of malignant neoplasm of bladder; Z68.34 Body mass index [BMI] 34.0-34.9, adult
CPT/HCPCS: 36415; 36600; S0017; 71045; 71046; 80048; 80053; 81003; 82040; 82330; 82800; 82803; 82810; 82947; 82962; 83036; 83735; 84132; 84295; 85014; 85018; 85025; 85049; 85347; 85610; 85730; 86850; 86900; 86923; 87081; 88305; 93005; 93312; 93321; 93325; 93880; 94002; 94150; C1768; G0378; J0171; J0697; J1644; J1650; J1815; J2250; J2260; J2405; J2704; J3010; J3370; J3475; J3480; J3490; P9045; P9047; C1760; J1940; J2370; J7050; J7120

== ENCOUNTER → 2019-01-29 | Outpatient (CLI) | payer OTHER ==
[~2019-01-29] MED LIST changes: +ASPI81TA45 PO; +FURO40TA6 PO; -HYDR12.58 PO; +HYDROCHLOROTH12.5 MG PO; +OXYC5TAB3 PO; +POTA20TA89 PO; +WARF2TAB99 PO
== END | disposition home or self-care (01) ==
LOC: CFH 08:14
PROVIDERS: ATTEND Nurse Practitioner
DX: R91.8 Other nonspecific abnormal finding of lung field (principal); I25.10 Atherosclerotic heart disease of native coronary artery without angina pectoris; I70.0 Atherosclerosis of aorta; Z79.899 Other long term (current) drug therapy
CPT/HCPCS: 71250

== ENCOUNTER → 2019-08-11 | Outpatient (CLI) | payer OTHER ==
[~2019-08-11] MED LIST changes: +LISI1TAB20 PO; -LISI1TAB7 PO
== END | disposition home or self-care (01) ==
LOC: CFH 13:43
PROVIDERS: ATTEND Internal Medicine Cardiovascular Disease
DX: I11.9 Hypertensive heart disease without heart failure (principal); C67.9 Malignant neoplasm of bladder, unspecified; E78.5 Hyperlipidemia, unspecified; Z95.4 Presence of other heart-valve replacement
CPT/HCPCS: 93306

== ENCOUNTER 2020-02-02 09:44 | Outpatient (CLI) | payer OTHER ==
[~2020-02-02 09:44] MED LIST changes: +MONT10TA11 PO; -MONT10TA9 PO
== END 2020-02-02 23:59 | disposition home or self-care (01) ==
LOC: CFH 09:44
PROVIDERS: ATTEND Nurse Practitioner
DX: R91.8 Other nonspecific abnormal finding of lung field (principal); J92.9 Pleural plaque without asbestos; I25.10 Atherosclerotic heart disease of native coronary artery without angina pectoris; Z95.2 Presence of prosthetic heart valve
CPT/HCPCS: 71250